=== PATIENT | female | born 1970 | race Two or more races ===

== ENCOUNTER 2022-04-18 16:36 | Emergency (ER) | payer BC, OTHER ==
[~2022-04-18] VITALS: Ht 154.9 cm; Wt 80.0 kg
[2022-04-18 17:35] VITALS: BP 145/94
[2022-04-18 18:23] LABS: Basophils # (auto) 0 10 ^3/uL (0-0.2); Basophils % (auto) 0.5 % (0.0-2.0); Eosinophils # (auto) 0.1 10 ^3/uL (0-0.8); Hematocrit 45.3 % (36.0-46.0); Hemoglobin 16.1 g/dL (12.2-16.2); Lymphocytes # (auto) 0.6 10 ^3/uL (0.4-5.4); Mean Corpuscular Hemoglobin 32.3 pg (28.0-32.0); Mean Corpuscular Hgb Conc. 35.5 g/dL (32.0-36.0); Mean Corpuscular Volume 90.9 fL (80.0-100.0); Monocytes # (auto) 0.2 10 ^3/uL (0-1.3); Monocytes % (auto) 2.7 % (0.0-12.0); Neutrophils # (auto) 7.1 10 ^3/uL (1.6-8.6); Neutrophils % (auto) 88.8 % (37.0-80.0); Nucleated Red Blood Cells % 0.1 %; Red Blood Cells 4.98 10^6/uL (4.0-5.20); Red Cell Distribution Width 13.1 % (11.8-14.3)
[2022-04-18 18:36] LABS: Albumin 4.1 g/dL (3.4-5.0); BUN/Creatinine Ratio 22.4; Calcium 8.6 mg/dL (8.5-10.1)
[2022-04-18 18:38] LABS: Bilirubin, Total 0.9 mg/dL (0.2-1.0); Total Protein 7.9 g/dL (6.4-8.2)
[2022-04-18] MEDS ORDERED: ASPirin 325 MG TAB PO ONE (21:00)
[2022-04-18] MEDS ORDERED: SODIUM CHLORIDE 0.9% 1,000 ML IV ONE (21:00)
[2022-04-18] MEDS ORDERED: ONDANSETRON HCL 4 MG/2 ML VIAL BC ONE (21:00)
[2022-04-18] MEDS ORDERED: HYDROcodone-ACET 5/325MG TAB PO ONE (21:00)
== END 2022-04-18 21:20 | disposition left against medical advice (07) ==
LOC: ER 16:36
DX: B34.9 Viral infection, unspecified (principal); R07.89 Other chest pain; R06.00 Dyspnea, unspecified; R19.7 Diarrhea, unspecified; Z86.2 Personal history of diseases of the blood and blood-forming organs and certain disorders involving the immune mechanism; Z20.822 Contact with and (suspected) exposure to COVID-19
CPT/HCPCS: 36415; 71045; 80053; 83605; 83880; 84484; 85025; 85379; 87426; 87804; 93005

== ENCOUNTER 2023-03-18 16:15 | Emergency (ER) | payer BC ==
[~2023-03-18] VITALS: Ht 154.9 cm; Wt 85.6 kg
[2023-03-18 18:26] VITALS: BP 158/84; PULSE 83; RESP 20; TEMP 97.8; O2SAT 96
[2023-03-18] MEDS ORDERED: IBUP-1456 PO (18:31)
[2023-03-18] MEDS ORDERED: AMOX875T4 PO (18:31)
== END 2023-03-18 18:38 | disposition home or self-care (01) ==
LOC: ER 16:15
DX: J32.9 Chronic sinusitis, unspecified (principal); Z98.51 Tubal ligation status

== ENCOUNTER → 2023-04-01 | Outpatient (CLI) | payer BC ==
[~2023-04-01] MED LIST: AMOX875T4 PO; IBUP-1456 PO
== END | disposition home or self-care (01) ==
LOC: LAB 12:00
PROVIDERS: ATTEND Obstetrics & Gynecology
DX: N84.1 Polyp of cervix uteri (principal)